=== PATIENT | female | born 1930 | race Caucasian/White ===

== ENCOUNTER 2017-02-25 05:39 | Emergency (ER) | payer MEDICARE, OTHER ==
[~2017-02-25] VITALS: Ht 160 cm; Wt 57.3 kg
[~2017-02-25 05:39] MED LIST: AMLO5 PO; ATEN-100 PO; BONI150T PO; CALC-187 PO; KLOR20TA6 PO; LISI-357 PO; LIVA2TAB PO; OMEP20TA PO; OXYB5TAB33 PO; TAB-TAB PO
[2017-02-25 05:50] VITALS: BP 107/56; PULSE 80; RESP 20; TEMP 97.5; O2SAT 97
[2017-02-25 06:09] VITALS: BP 107/56; PULSE 80; RESP 18; TEMP 97.5; O2SAT 97
[2017-02-25] MEDS ORDERED: OXYB5TAB8 PO (06:19)
[2017-02-25] MEDS ORDERED: OMEP20TA93 PO (06:19)
[2017-02-25] MEDS ORDERED: AMLO5TAB2 PO (06:19)
[2017-02-25] MEDS ORDERED: LOVA20TA PO (06:19)
[2017-02-25] MEDS ORDERED: ATEN25TA PO (06:19)
[2017-02-25 06:35] VITALS: BP 125/66; PULSE 71; RESP 18; O2SAT 97
--- NOTE | 2017-02-25 06:51 | PD ---
HPI Chief Complaint: Fall Time Seen by Provider: 06:28 Travel History International Travel<30 days: No Contact w/Intl Traveler<30days: No Traveled to known affect area: No History of Present Illness HPI This is an 86-year-old female who 2 nights ago had a mechanical fall in her house where she injured her left hip. Since then she's had left leg pain, constant, severe, worse with walking. She's been able to ambulate with a walker but whenever she puts minimal weight on the leg she has severe pain. She denies any numbness or weakness. She didn't hit her head or injure herself otherwise after her fall. She has a history of bilateral hip replacements. [facility] Past Medical History Asthma: No Autoimmune Disease: No Heart Rhythm Problems: No Cancer: No Cardiovascular Problems: Yes High Cholesterol: Yes Chest Pain: No Congestive Heart Failure: Yes COPD: No Diabetes: No Endocrine: No Gastrointestinal Disorders: Yes GERD: Yes Genitourinary: No Hiatal Hernia: No Hypertension: Yes Immune Disorder: No Implanted Vascular Access Dvce: Yes Musculoskeletal: No Neurologic: No Psychiatric: No Reproductive: No Respiratory: Yes (RECENT PNEUMONIA 2010) Sleep Apnea: No Thyroid Disease: No Ulcer: No ?: Not Menopausal: Yes Past Surgical History Abdominal Surgery: Yes (CHOLECYSTECTOMY) Cardiac Surgery: No Cholecystectomy: Yes Ear Surgery: No Endocrine Surgery: No Eye Surgery: Yes (BILATERAL "LENS REPLACEMENT") Genitourinary Surgery: No Gynecologic Surgery: No Joint Replacement: Yes (right hip, LEFT HIP) Oral Surgery: No Thoracic Surgery: No Other Surgery: Yes Social History Alcohol Use: No Tobacco Use: No Substance Use: No Allergies-Medications (Allergen,Severity, Reaction): Coded Allergies: simvastatin (Verified Allergy, Severe, unknown, 02/25/17) ciprofloxacin (Verified Allergy, Unknown, 02/25/17) Reported Meds & Prescriptions Reported Meds & Active Scripts Active Reported Ditropan (Oxybutynin Chloride) 5 Mg Tab 5 Mg PO Q12HR Atenolol 25 Mg Tab 25 Mg PO DAILY Omeprazole 20 Mg Tab 20 Mg PO DAILY Lovastatin 20 Mg Tab 20 Mg PO DAILY Amlodipine (Amlodipine Besylate) 5 Mg Tab 5 Mg PO DAILY Review of Systems Except as stated in HPI: all other systems reviewed are Neg Physical Exam Narrative GENERAL:Well appearing, no acute distress SKIN: Focused skin assessment warm and dry. HEAD: Atraumatic. Normocephalic. EYES: Pupils equal and round. No injection or drainage. ENT: Moist mucous membranes NECK: Trachea midline. CARDIOVASCULAR: Regular rate and rhythm. No murmur appreciated. 2+ bilateral DP pulses with normal capillary refill. RESPIRATORY: Clear to auscultation. Breath sounds equal bilaterally. GASTROINTESTINAL: Abdomen soft, non-tender, nondistended. MUSCULOSKELETAL: Tender to palpation along the mid left thigh NEUROLOGICAL: Awake and alert. No obvious cranial nerve deficits. Moving all extremities. PSYCHIATRIC: Appropriate mood and affect; insight and judgment normal. Data Data Last Documented VS Vital Signs Date Time Temp Pulse Resp B/P (MAP) Pulse Ox O2 Delivery O2 Flow Rate FiO2 02/25/17 06:35 71 18 125/66 (85) 97 Room Air 02/25/17 06:09 97.5 Orders Orders Hip, Uni(Ap&Lat) W Ap Pelvis (02/25/17 ) Femur (Ap & Lat/2vws) (02/25/17 ) MDM Medical Decision Making Medical Screen Exam Complete: Yes Emergency Medical Condition: Yes Differential Diagnosis Femur fracture, hip dislocation, contusion, hip sprain Narrative Course This is an 86-year-old female who presents to the emergency department having had a mechanical fall 2 nights ago injuring her left leg. Patient is most tender along the mid femur. She has a normal neurovascular exam. X-rays will be obtained and followed up by oncoming physician. She has no other evident injuries. Ethel Balderrama MD Feb 25, 2017 06:51
--- NOTE | 2017-02-25 07:00 | RADRPT ---
EXAM DATE/TIME: 02/25/2017 06:39 [facility] COMPARISON: No previous studies available for comparison. INDICATIONS : Left hip pain post fall. MEDICAL HISTORY : Congestive heart failure. Hypercholesterolemia. Gastroesophageal reflux disease. Hypertension. SURGICAL HISTORY : Cholecystectomy. Bilateral hip replacements. ENCOUNTER: Initial ACUITY: 2 days PAIN SCORE: 10/10 LOCATION: Left hip. FINDINGS: Examination of the left hip was performed with AP Pelvis. Left hip arthroplasty. Femoral component in tact. There is a fracture fragment along the greater trochanter. Right hip also has arthroplasty whic h is intact. CONCLUSION: Bilateral hip prostheses. There is a fracture fragment along the greater trochanter on the left. Jovany Chaney MD on February 25, 2017 at 6:55 Board Certified Radiologist. This report was verified electronically.
--- NOTE | 2017-02-25 07:01 | RADRPT ---
EXAM DATE/TIME: 02/25/2017 06:39 [facility] COMPARISON: No previous studies available for comparison. INDICATIONS : Left femur pain post fall. MEDICAL HISTORY : Hypercholesterolemia. Gastroesophageal reflux disease. Gastroesophageal reflux disease. Hypetensi on. SURGICAL HISTORY : Cholecystectomy. Bilateral hip replacements. ENCOUNTER: Initial ACUITY: 2 days PAIN SCORE: 10/10 LOCATION: Left femur FINDINGS: Two view examination of the left femur demonstrates left hip arthroplasty. Fracture fragment along th e greater trochanter. No hardware loosening. Mid to distal femur is intact. The soft tissue structure s are intact. CONCLUSION: A small fracture fragment along the greater trochanter of the left. Jovany Chaney MD on February 25, 2017 at 6:58 Board Certified Radiologist. This report was verified electronically.
[2017-02-25 09:06] VITALS: BP 138/83; PULSE 86; RESP 16; O2SAT 96
[2017-02-25] MEDS ORDERED: BEDSIDE COMMODE1 MI1 (09:07)
[2017-02-25] MEDS ORDERED: TRAM50TA PO (09:07)
--- NOTE | 2017-02-25 09:08 | PD ---
Physical Exam Date Seen by Provider: Feb 25, 2017 Time Seen by Provider: 07:00 Narrative Patient signed out to me at [address] Balderrama, please see her note for further details. Patient has had a fall, left hip injury, x-ray is showing signs of a small fracture in the greater trochanter, previously had hip replacement by Dr. Salinas. Last 24 hours Impressions Hip and Pelvis X-Ray 02/25/17 0000 Signed Impressions: Service Date/Time: , February 25, 2017 06:39 - CONCLUSION: Bilateral hip prostheses. There is a fracture fragment along the greater trochanter on the left. Jovany Chaney MD Femur X-Ray 02/25/17 0000 Signed Impressions: Service Date/Time: , February 25, 2017 06:39 - CONCLUSION: A small fracture fragment along the greater trochanter of the left. Jovany Chaney MD There are signs of a small fracture through the greater trochanter. Case was discussed with Dr. Ramos who is covering for Dr. Salinas, and he states that the patient can be released to follow-up with Dr. Salinas in the clinic, patient will need to call to get appointment. He wants her to be nonweightbearing on that leg meanwhile. At this point, I have discussed the findings and the orthopedic recommendations with the patient. I will give her pain medications. She should be nonweightbearing on the left. I have asked case management to discuss care plan with her and to help arrange for home health services as well as ride home. Return for any worsening in pain or new symptoms as needed. The plan has been discussed with the patient and she states understanding. Data Data Last Documented VS Vital Signs Date Time Temp Pulse Resp B/P (MAP) Pulse Ox O2 Delivery O2 Flow Rate FiO2 02/25/17 06:35 71 18 125/66 (85) 97 Room Air 02/25/17 06:09 97.5 Orders Orders Hip, Uni(Ap&Lat) W Ap Pelvis (02/25/17 ) Femur (Ap & Lat/2vws) (02/25/17 ) MDM Medical Record Reviewed: Yes Supervised Visit with JOHNNY: No Diagnosis Primary Impression: Greater trochanter fracture Referrals: Joe Rahman MD Med/Other Pt SpecificInfo: Prescription(s) given Scripts Bedside Commode (Bedside Commode) 1 Mis Mis EA .ROUTE DIRECTED for Pain, #1 Prov: Meghan Hanks MD 02/25/17 Tramadol (Tramadol) 50 Mg Tab 50 MG PO Q8H Y for PAIN, #15 TAB 0 Refills Prov: Meghan Hanks MD 02/25/17 Disposition: 01 DISCHARGE HOME Condition: Stable Meghan Hanks MD Feb 25, 2017 09:08
== END 2017-02-25 10:46 | disposition home or self-care (01) ==
LOC: PHED 05:39 → PHEFT 10:46
DX: S72.112A Displaced fracture of greater trochanter of left femur, initial encounter for closed fracture (principal); W19.XXXA Unspecified fall, initial encounter; Y92.009 Unspecified place in unspecified non-institutional (private) residence as the place of occurrence of the external cause
CPT/HCPCS: 73502; 73552; 99284

== ENCOUNTER 2017-10-21 07:47 | Inpatient (IN) | payer MEDICARE, OTHER ==
[2017-10-21] VITALS (9 sets, daily range): BP systolic 75–128; BP diastolic 52–77; PULSE 90–145; RESP 18–40; TEMP 97.6; O2SAT 85–98
[~2017-10-21] VITALS: Ht 160 cm; Wt 70.0 kg
[~2017-10-21 07:47] MED LIST changes: -AMLO5 PO; +AMLO5TAB2 PO; -ATEN-100 PO; +ATEN25TA PO; +BEDSIDE COMMODE1 MI1; -BONI150T PO; -CALC-187 PO; -KLOR20TA6 PO; -LISI-357 PO; -LIVA2TAB PO; +LOVA20TA PO; -OMEP20TA PO; +OMEP20TA93 PO; -OXYB5TAB33 PO; +OXYB5TAB8 PO; -TAB-TAB PO; +TRAM50TA PO
[2017-10-21] MEDS ORDERED: IOHEXOL 350 MG/ML 100 ML BTL (for Cath Lab) OTHER ONE (07:48)
[2017-10-21] MEDS ORDERED: SODIUM CHLOR 0.9% 1000 ML INJ 1,000 ML IV ONE ×2 (08:00→08:45)
[2017-10-21] MEDS ORDERED: SODIUM CHLORIDE 0.9% FLUSH 10 ML FLUSH IVF PRN (08:00)
[2017-10-21 08:10] LABS: AUTOMATED NEUTROPHIL # 9.8 TH/MM3 (1.8-7.7); BASOPHIL # 0.1 TH/MM3 (0-0.2); BASOPHIL % 0.8 % (0.0-2.0); EOSINOPHIL % 0.2 % (0.0-4.0); HEMOGLOBIN 14.7 GM/DL (11.6-15.3); LYMPH % 14.3 % (9.0-44.0); LYMPHOCYTE # 1.7 TH/MM3 (1.0-4.8); MEAN CELL VOLUME 86.1 FL (80.0-100.0); MEAN CORPUSCULAR HGB CONC 32.5 % (32.0-36.0); MEAN PLATELET VOLUME 9.5 FL (7.0-11.0); MONO % 3.4 % (0.0-8.0); MONOCYTE # 0.4 TH/MM3 (0-0.9); NEUT % 81.3 % (16.0-70.0); PLATELET COUNT 266 TH/MM3 (150-450); RED BLOOD COUNT 5.23 MIL/MM3 (4.00-5.30); RED CELL DISTRIBUTION WIDTH 13.3 % (11.6-17.2); WHITE BLOOD COUNT 12.1 TH/MM3 (4.0-11.0)
[2017-10-21] MEDS ORDERED: CALC1TAB87 PO (08:10)
[2017-10-21] MEDS ORDERED: MULTTAB67 PO (08:10)
[2017-10-21] MEDS ORDERED: METOPROLOL TARTRATE 5 MG/5 ML VIAL IV PUSH ONE (08:15)
[2017-10-21 08:25] LABS: PROTHROMBIN TIME - PATIENT 10.3 SEC (9.8-11.6)
[2017-10-21] MEDS ORDERED: AMIODARONE INJ 150 MG in DEXTROSE 5% IN WATER 100ML INJ 97 ML IV ONE ×2 (08:27)
[2017-10-21 08:41] LABS: ALBUMIN 3.1 GM/DL (3.4-5.0); AST (GOT) 167 U/L (15-37); BICARBONATE 21.1 MEQ/L (21.0-32.0); BLOOD UREA NITROGEN 18 MG/DL (7-18); CALCIUM 8.5 MG/DL (8.5-10.1); CHLORIDE 109 MEQ/L (98-107); CREATININE 1.57 MG/DL (0.50-1.00); GLOMERULAR FILTRATION RATE 31 ML/MIN (>89); GLUCOSE,RANDOM 211 MG/DL (74-106); SODIUM (NA) 141 MEQ/L (136-145)
[2017-10-21 08:42] LABS: ALT (GPT) 67 U/L (10-53)
[2017-10-21 08:45] LABS: ALKALINE PHOSPHATASE 51 U/L (45-117); TOTAL BILIRUBIN ADULT 0.5 MG/DL (0.2-1.0); TOTAL PROTEIN 6.2 GM/DL (6.4-8.2)
[2017-10-21] MEDS ORDERED: ONDANSETRON ODT 4 MG TAB PO ONE (08:45)
--- NOTE | 2017-10-21 08:49 | RADRPT ---
EXAM DATE: 10/21/2017 8:23 AM EDT AGE/SEX: 87 years / Female INDICATIONS: Short of breath. CLINICAL DATA: This is the patient's initial encounter. Patient reports that signs and symptoms have been present for 1 day and indicates a pain score of 0/10. MEDICAL/SURGICAL HISTORY: Congestive heart failure. Hypertension. Gastroesophageal reflux dis ease. Cholecystectomy. Bilateral hip replacement. COMPARISON: [facility], CHEST SINGLE AP, 07/20/2013. . FINDINGS: There is moderate diffuse interstitial prominence slightly more prominent in the lung bases. Cardiome diastinal contours are within normal limits. Central pulmonary vascularity is indistinct. Bony thorax is intact. CONCLUSION: 1. New moderate lower lobe predominant diffuse interstitial prominence likely reflecting interstitia l edema, although chronicity is uncertain given lack of more recent prior exams. Electronically signed by: Doc Dixon MD 10/21/2017 8:48 AM EDT
[2017-10-21] MEDS ORDERED: IODIXANOL 320 MG/ML 10 ML VIAL (for Rad CT) IVCONTRAST ONE (09:27)
[2017-10-21] MEDS ORDERED: HEPARIN SODIUM - IV 10,000 UNITS/10 ML VIAL IV PUSH ONE (09:45)
[2017-10-21] MEDS ORDERED: DOPamine 800 MG/500 ML INJ 500 ML IV PRN (09:45)
[2017-10-21] MEDS ORDERED: HEPARIN-D5W 25,000 U/250 ML 250 ML IV PRN (09:45)
[2017-10-21] MEDS ORDERED: TERBUTALINE INJ 1 MG/ML AMP SQ PRN (09:45)
--- NOTE | 2017-10-21 09:48 | PD ---
Data Data Last Documented VS Vital Signs Date Time Temp Pulse Resp B/P (MAP) Pulse Ox O2 Delivery O2 Flow Rate FiO2 10/21/17 09:37 111 25 113/71 (85) 91 Non-Rebreather 15.00 10/21/17 07:48 97.6 Orders Orders Complete Blood Count With Diff (10/21/17 07:59) Comprehensive Metabolic Panel (10/21/17 07:59) Act Partial Throm Time (Ptt) (10/21/17 07:59) Prothrombin Time / Inr (Pt) (10/21/17 07:59) Ckmb (Isoenzyme) Profile (10/21/17 07:59) Troponin I (10/21/17 07:59) Iv Access Insert/Monitor (10/21/17 07:59) Ecg Monitoring (10/21/17 07:59) Oximetry (10/21/17 07:59) Oxygen Administration (10/21/17 07:59) Chest, Single Ap (10/21/17 07:59) Ct Pulmonary Angiogram (10/21/17 07:59) Sodium Chloride 0.9% Flush (Ns Flush) (10/21/17 08:00) Sodium Chlor 0.9% 1000 Ml Inj (Ns 1000 M (10/21/17 08:00) Metoprolol Tartrate Inj (Lopressor Inj) (10/21/17 08:15) ^ Medication Alert (10/21/17 08:27) ^ Discontinue (10/21/17 08:27) Dextrose 5% In Wate... W/Amiodarone Inj (10/21/17 08:27) Vital Signs (Adult) SIENA.Q4H (10/21/17 08:27) Sodium Chlor 0.9% 1000 Ml Inj (Ns 1000 M (10/21/17 08:45) Ondansetron Odt (Zofran Odt) (10/21/17 08:45) CKMB (10/21/17 08:00) CKMB% (10/21/17 08:00) Iodixanol 320 Inj (Rad Ct) (Visipaque 32 (10/21/17 09:27) Dopamine 800 Mg/500 Ml Inj (Dopamine 800 (10/21/17 09:45) Terbutaline Inj (Brethine Inj) (10/21/17 09:45) Heparin Inj (Heparin Inj) (10/21/17 09:45) Heparin Inj (Heparin Inj) (10/21/17 15:45) Heparin Inj (Heparin Inj) (10/21/17 15:45) Heparin-D5w 25,000 U/250 Ml (Heparin-D5w (10/21/17 09:45) Cbc No Diff, Includes Plts (10/24/17 06:00) Act Partial Throm Time (Ptt) (10/21/17 16:36) Occult Blood (Hemoccult) Stool (10/21/17 09:36) Labs Laboratory Tests Test 10/21/17 08:00 White Blood Count 12.1 TH/MM3 Red Blood Count 5.23 MIL/MM3 Hemoglobin 14.7 GM/DL Hematocrit 45.0 % Mean Corpuscular Volume 86.1 FL Mean Corpuscular Hemoglobin 28.0 PG Mean Corpuscular Hemoglobin Concent 32.5 % Red Cell Distribution Width 13.3 % Platelet Count 266 TH/MM3 Mean Platelet Volume 9.5 FL Neutrophils (%) (Auto) 81.3 % Lymphocytes (%) (Auto) 14.3 % Monocytes (%) (Auto) 3.4 % Eosinophils (%) (Auto) 0.2 % Basophils (%) (Auto) 0.8 % Neutrophils # (Auto) 9.8 TH/MM3 Lymphocytes # (Auto) 1.7 TH/MM3 Monocytes # (Auto) 0.4 TH/MM3 Eosinophils # (Auto) 0.0 TH/MM3 Basophils # (Auto) 0.1 TH/MM3 CBC Comment DIFF FINAL Differential Comment Prothrombin Time 10.3 SEC Prothromb Time International Ratio 1.0 RATIO Activated Partial Thromboplast Time 26.0 SEC Blood Urea Nitrogen 18 MG/DL Creatinine 1.57 MG/DL Random Glucose 211 MG/DL Total Protein 6.2 GM/DL Albumin 3.1 GM/DL Calcium Level 8.5 MG/DL Alkaline Phosphatase 51 U/L Aspartate Amino Transf (AST/SGOT) 167 U/L Alanine Aminotransferase (ALT/SGPT) 67 U/L Total Bilirubin 0.5 MG/DL Sodium Level 141 MEQ/L Potassium Level 4.1 MEQ/L Chloride Level 109 MEQ/L Carbon Dioxide Level 21.1 MEQ/L Anion Gap 11 MEQ/L Estimat Glomerular Filtration Rate 31 ML/MIN Total Creatine Kinase 731 U/L Creatine Kinase MB 80.4 NG/ML Creatine Kinase MB % 11.0 % Troponin I 15.60 NG/ML MDM Supervised Visit with JOHNNY: No Narrative Course Dr. Das asked for my opinion on this 87 year old female who has been having chest pressure since 0200. EKG atrial fib with RVR initially 170's now down to 100-120. Patient BP on the lower side. She is alert awake and oriented understands that she has likely had a massive PA early this morning. I have performed a BS US showing greatly reduced LV EF. Trace pericardial effusion. There is some trace pulmonary edema on cxr. She is still having active CP. She 's already received 1000L NS, and metoprolol. Discussed consultation with cardiology, ICU. Dr. Lai recommends consideration of Dopamine if BP declines again. Discussed with patient that her heart appears to be very ill and while we are doing everything she may require ACLS in the near future. Patient expressed her wishes to be DNR/DNI. Witnessed by Dr. Das and nursing. A formal order was signed by both myself and Dr. Das for DNR/DNI status. Condition: Critical Mehrdad Zhu MD Oct 21, 2017 09:48
--- NOTE | 2017-10-21 09:51 | PD ---
HPI Chief Complaint: Chest Pain Time Seen by Provider: 07:58 Travel History International Travel<30 days: No Contact w/Intl Traveler<30days: No Traveled to known affect area: No History of Present Illness HPI Patient is an 87 year old female, BIBEMS due to chest pain and SOB. She says that she woke up at 2AM with substernal chest pain. She denies radiation of the pain. She says she feels SOB and as if she is going to pass out. She says she had an episode of pain a few days ago, but she thought it was indigestion. She says she has no heart problems that she knows of or any issues with her heart rhythm. She denies leg swelling or pain. She did not take anything prior to calling EMS. Severity is severe. PFSH Past Medical History Asthma: No Autoimmune Disease: No Heart Rhythm Problems: No Cancer: No Cardiovascular Problems: Yes High Cholesterol: Yes Chest Pain: No Congestive Heart Failure: Yes COPD: No Diabetes: No Endocrine: No Gastrointestinal Disorders: Yes GERD: Yes Genitourinary: No Hiatal Hernia: No Hypertension: Yes Immune Disorder: No Implanted Vascular Access Dvce: Yes Musculoskeletal: No Neurologic: No Psychiatric: No Reproductive: No Respiratory: Yes (PNEUMONIA 2010) Sleep Apnea: No Thyroid Disease: No Ulcer: No Influenza Vaccination: Yes Menopausal: Yes Past Surgical History Abdominal Surgery: Yes (CHOLECYSTECTOMY) Cardiac Surgery: No Cholecystectomy: Yes Ear Surgery: No Endocrine Surgery: No Eye Surgery: Yes (BILATERAL "LENS REPLACEMENT") Genitourinary Surgery: No Gynecologic Surgery: No Joint Replacement: Yes (right hip, LEFT HIP) Oral Surgery: No Thoracic Surgery: No Other Surgery: Yes Social History Alcohol Use: No Tobacco Use: No Substance Use: No Allergies-Medications (Allergen,Severity, Reaction): Coded Allergies: simvastatin (Verified Allergy, Severe, unknown, 10/21/17) ciprofloxacin (Verified Allergy, Unknown, 10/21/17) Reported Meds & Prescriptions Reported Meds & Active Scripts Active Bedside Commode (Device) 1 Mis Mis Ea .ROUTE DIRECTED Reported Multiple Vitamin 1 Tab 1 Tab PO DAILY Calcium 600 with Vitamin D (Calcium Carbonate-Cholecalciferol) 600-400 mg-Unit Tab 1 Tab PO DAILY Ditropan (Oxybutynin Chloride) 5 Mg Tab 5 Mg PO Q12HR Atenolol 25 Mg Tab 25 Mg PO BID Omeprazole 20 Mg Tab 20 Mg PO DAILY Lovastatin 20 Mg Tab 20 Mg PO DAILY Amlodipine (Amlodipine Besylate) 5 Mg Tab 5 Mg PO BID Review of Systems Except as stated in HPI: all other systems reviewed are Neg General / Constitutional: No: Fever, Chills Eyes: No: Blurred Vision HENT: Positive: Lightheadedness, No: Headaches Cardiovascular: Positive: Chest Pain or Discomfort Respiratory: Positive: Shortness of Breath Gastrointestinal: Positive: Nausea Skin: No Change in Pigmentation Physical Exam Narrative GENERAL: Awake and alert, obviously uncomfortable. SKIN: Focused skin assessment warm/dry. Pale in color. HEAD: Atraumatic. Normocephalic. EYES: Pupils equal and round. No scleral icterus. EOMI. ENT: Mucous membranes pink and moist. NECK: Trachea midline. No JVD. CARDIOVASCULAR: Tachycardia, irregularly irregular. No murmur appreciated. RESPIRATORY: No accessory muscle use. Clear to auscultation. Breath sounds equal bilaterally. GASTROINTESTINAL: Abdomen soft, non-tender, nondistended. MUSCULOSKELETAL: No obvious deformities. No clubbing. No cyanosis. No edema. NEUROLOGICAL: Awake and alert. No obvious cranial nerve deficits. Motor grossly within normal limits. Normal speech. PSYCHIATRIC: Appropriate mood and affect; insight and judgment normal. Data Data Last Documented VS Vital Signs Date Time Temp Pulse Resp B/P (MAP) Pulse Ox O2 Delivery O2 Flow Rate FiO2 10/21/17 10:22 90 80/55 10/21/17 09:45 27 90 Non-Rebreather 15.00 10/21/17 07:48 97.6 Orders Orders Complete Blood Count With Diff (10/21/17 07:59) Comprehensive Metabolic Panel (10/21/17 07:59) Act Partial Throm Time (Ptt) (10/21/17 07:59) Prothrombin Time / Inr (Pt) (10/21/17 07:59) Ckmb (Isoenzyme) Profile (10/21/17 07:59) Troponin I (10/21/17 07:59) Iv Access Insert/Monitor (10/21/17 07:59) Ecg Monitoring (10/21/17 07:59) Oximetry (10/21/17 07:59) Oxygen Administration (10/21/17 07:59) Chest, Single Ap (10/21/17 07:59) Ct Pulmonary Angiogram (10/21/17 07:59) Sodium Chloride 0.9% Flush (Ns Flush) (10/21/17 08:00) Sodium Chlor 0.9% 1000 Ml Inj (Ns 1000 M (10/21/17 08:00) Metoprolol Tartrate Inj (Lopressor Inj) (10/21/17 08:15) ^ Medication Alert (10/21/17 08:27) ^ Discontinue (10/21/17 08:27) Dextrose 5% In Wate... W/Amiodarone Inj (10/21/17 08:27) Vital Signs (Adult) SIENA.Q4H (10/21/17 08:27) Sodium Chlor 0.9% 1000 Ml Inj (Ns 1000 M (10/21/17 08:45) Ondansetron Odt (Zofran Odt) (10/21/17 08:45) CKMB (10/21/17 08:00) CKMB% (10/21/17 08:00) Iodixanol 320 Inj (Rad Ct) (Visipaque 32 (10/21/17 09:27) Dopamine 800 Mg/500 Ml Inj (Dopamine 800 (10/21/17 09:45) Terbutaline Inj (Brethine Inj) (10/21/17 09:45) Heparin Inj (Heparin Inj) (10/21/17 09:45) Heparin Inj (Heparin Inj) (10/21/17 15:45) Heparin Inj (Heparin Inj) (10/21/17 15:45) Heparin-D5w 25,000 U/250 Ml (Heparin-D5w (10/21/17 09:45) Cbc No Diff, Includes Plts (10/24/17 06:00) Act Partial Throm Time (Ptt) (10/21/17 16:36) Occult Blood (Hemoccult) Stool (10/21/17 09:36) Cardiac Catheterization (10/21/17 ) Admit Order (Ed Use Only) (10/21/17 ) Code Status (10/21/17 09:51) Heparin-Ns/Pf Inj (Heparin-Ns/Pf Inj) (10/21/17 10:05) Dopamine 800 Mg/500 Ml Inj (Dopamine 800 (10/21/17 10:20) Admit To Inpatient (10/21/17 ) Vital Signs (Adult) SIENA.Q1H (10/21/17 10:14) Activity Bed Rest (10/21/17 10:14) Diet Npo (10/21/17 Lunch) Sodium Chlor 0.9% 1000 Ml Inj (Ns 1000 M (10/21/17 10:14) Morphine Inj (Morphine Inj) (10/21/17 10:15) Famotidine Inj (Pepcid Inj) (10/21/17 21:00) Albuterol-Ipratropium Neb (Duoneb Neb) (10/21/17 10:15) Complete Blood Count With Diff (10/22/17 04:00) Comprehensive Metabolic Panel (10/22/17 04:00) Troponin I (10/21/17 14:00) Troponin I (10/21/17 20:00) Magnesium (Mg) (10/22/17 04:00) Phosphorus (Po4) (10/22/17 04:00) Lactic Acid (10/22/17 04:00) Electrocardiogram (10/21/17 14:00) Electrocardiogram (10/21/17 20:00) Weigh Box Tender / Telemetry SIENA.Q8H (10/21/17 10:14) Scd Bilateral/Knee High SIENA.BID (10/21/17 10:14) ^ Initiate Protocol (10/21/17 10:14) Instruction (10/21/17 10:14) Nursing Information ([facility] Nursing Inform (10/21/17 10:15) Chlorhexidine 2% Cloth (Chlorhexidine 2% (10/22/17 04:00) Chlorhexidine 2% Cloth (Chlorhexidine 2% (10/21/17 10:15) Mrsa Pcr Surveillance (10/21/17 10:14) Docusate Sodium-Senna (Shaina-Colace) (10/21/17 21:00) Magnesium Hydroxide Liq (Milk Of Magnesi (10/21/17 10:15) Sennosides (Senokot) (10/21/17 10:15) Bisacodyl Supp (Dulcolax Supp) (10/21/17 10:15) Lactulose Liq (Lactulose Liq) (10/21/17 10:15) Inpatient Certification (10/21/17 ) Famotidine Inj (Pepcid Inj) (10/22/17 09:00) Lactic Acid (10/21/17 10:31) Electrocardiogram (10/21/17 07:51) Epinephrine (1:10,000) Inj (Epinephrine (10/21/17 11:43) Atropine Inj (Atropine Inj) (10/21/17 11:43) Labs Laboratory Tests Test 10/21/17 08:00 White Blood Count 12.1 TH/MM3 Red Blood Count 5.23 MIL/MM3 Hemoglobin 14.7 GM/DL Hematocrit 45.0 % Mean Corpuscular Volume 86.1 FL Mean Corpuscular Hemoglobin 28.0 PG Mean Corpuscular Hemoglobin Concent 32.5 % Red Cell Distribution Width 13.3 % Platelet Count 266 TH/MM3 Mean Platelet Volume 9.5 FL Neutrophils (%) (Auto) 81.3 % Lymphocytes (%) (Auto) 14.3 % Monocytes (%) (Auto) 3.4 % Eosinophils (%) (Auto) 0.2 % Basophils (%) (Auto) 0.8 % Neutrophils # (Auto) 9.8 TH/MM3 Lymphocytes # (Auto) 1.7 TH/MM3 Monocytes # (Auto) 0.4 TH/MM3 Eosinophils # (Auto) 0.0 TH/MM3 Basophils # (Auto) 0.1 TH/MM3 CBC Comment DIFF FINAL Differential Comment Prothrombin Time 10.3 SEC Prothromb Time International Ratio 1.0 RATIO Activated Partial Thromboplast Time 26.0 SEC Blood Urea Nitrogen 18 MG/DL Creatinine 1.57 MG/DL Random Glucose 211 MG/DL Total Protein 6.2 GM/DL Albumin 3.1 GM/DL Calcium Level 8.5 MG/DL Alkaline Phosphatase 51 U/L Aspartate Amino Transf (AST/SGOT) 167 U/L Alanine Aminotransferase (ALT/SGPT) 67 U/L Total Bilirubin 0.5 MG/DL Sodium Level 141 MEQ/L Potassium Level 4.1 MEQ/L Chloride Level 109 MEQ/L Carbon Dioxide Level 21.1 MEQ/L Anion Gap 11 MEQ/L Estimat Glomerular Filtration Rate 31 ML/MIN Total Creatine Kinase 731 U/L Creatine Kinase MB 80.4 NG/ML Creatine Kinase MB % 11.0 % Troponin I 15.60 NG/ML MDM Medical Decision Making Medical Screen Exam Complete: Yes Emergency Medical Condition: Yes Medical Record Reviewed: Yes Interpretation(s) ECG shows afib with RVR at a rate of 132 Differential Diagnosis ACS vs NSTEMI vs STEMI vs PE vs dissection Narrative Course Patient is a 87 year old female who comes in complaining of chest pain with SOB. Patient was given Aspirin by EMS. She was given IVF and nitro by EMS prior to arrival. Patient is hypotensive on arrival. Second IV started. Given IVF. Patient had some improvement of her BP with fluids. Given 1.25mg Metoprolol in an attempt to help with rate control. When this didn't work, Amiodarone ordered. Amiodarone did help with rate control. Patient's BP began to improve. CTA chest performed to rule out PE. Last 24 hours Impressions Chest X-Ray 10/21/17 844 Signed Impressions: CONCLUSION: 1. New moderate lower lobe predominant diffuse interstitial prominence likely reflecting interstitial edema, although chronicity is uncertain given lack of m ore recent prior exams. CT Angiography 10/21/17 803 Signed Impressions: CONCLUSION: 1. No pulmonary embolus is identified. 2. Small bilateral effusions. 3. Diffuse bilateral infiltrates likely representing interstitial edema. 4. Cardiomegaly with extensive atherosclerotic calcification of the coronary a rteries. 5. Calcification of the aortic annulus. I spoke with the patient regarding her wishes in the case that her heart would stop. She says she does not wish to be resuscitated. She does not want CPR or intubation. This was witnessed by Dr. Zhu. I spoke with Dr. Lai who would like to take the patient to the wharf laborer. He suggests Dopamine as needed and Heparin. Patient's labs came back with a troponin of 15. She was taken to the wharf laborer. Admitted. Critical Care Narrative Aggregate critical care time was 60 minutes. Time to perform other separately billable procedures was not included in the critical care time. My time did not include minutes spent treating any other patients simultaneously or on activities that did not directly contribute to the patient's treatment. The services I provided to this patient were to treat and/or prevent clinically significant deterioration that could result in: Serious illness or I provided critical care services requiring my management, as noted below: Chart data review, documentation time, medication orders and management, vital sign assessments/reviewing monitor data, ordering and reviewing lab tests, ordering and interpreting/reviewing x-rays and diagnostic studies, care of the patient and discussion of the patient with the admitting physicians. Diagnosis Primary Impression: Cardiogenic shock Additional Impression: NSTEMI (non-ST elevated myocardial infarction) Admitting Information Admitting Physician Requests: Admit Condition: Critical Erinn Das MD Oct 21, 2017 09:51
--- NOTE | 2017-10-21 09:54 | RADRPT ---
EXAM DATE: 10/21/2017 9:28 AM EDT AGE/SEX: 87 years / Female INDICATIONS: Shortness of breath, hypotension. Evaluate for embolism. CLINICAL DATA: This is the patient's initial encounter. Patient reports that signs and symptoms have been present for 1 day and indicates a pain score of Nonresponsive. MEDICAL/SURGICAL HISTORY: Cardiovascular disease. Hypertension. Gastroesophageal reflux disease. Cholecystectomy. RADIATION DOSE: 12.63 CTDI (mGy) COMPARISON: No prior exams available for comparison. TECHNIQUE: Volumetric scanning was performed using a multi-row detector CT scanner during bolus infu martir of 49 ml Visipaque 320 (iodixanol) nonionic water-soluble contrast as a single exam dose. The d kingsley was post processed with a variety of visualization algorithms including full volume maximum inten sity projection and sliding thin slab reformation. Using automated exposure control and adjustment o f the mA and/or kV according to patient size, radiation dose was kept as low as reasonably achievable to obtain optimal diagnostic quality images. DICOM format image data is available electronically fo r review and comparison. FINDINGS: The examination is of good diagnostic quality. No pulmonary embolus is identified. The heart is enlarged. There is advanced atherosclerotic plaquing in the coronary arteries. There is extensive calcification of the aortic annulus. There is no pericardial effusion. No significant hilar or mediastinal adenopathy is identified. Imaging through the pulmonary parenchyma demonstrates small bilateral effusions and bilateral parench ymal infiltrates likely representing pulmonary edema. The examination also demonstrates a 3.5 x 1.3 cm lipoma along the pleura of the right lateral chest. The limited portions of upper abdomen visualized are unremarkable. CONCLUSION: 1. No pulmonary embolus is identified. 2. Small bilateral effusions. 3. Diffuse bilateral infiltrates likely representing interstitial edema. 4. Cardiomegaly with extensive atherosclerotic calcification of the coronary arteries. 5. Calcification of the aortic annulus. Electronically signed by: Brayan Ly MD 10/21/2017 9:53 AM EDT
[2017-10-21] MEDS ORDERED: HEPARIN-NS/PF INJ 1,000 ML ONE (10:05)
[2017-10-21] MEDS ORDERED: SODIUM CHLOR 0.9% 1000 ML INJ 1,000 ML IV SCH (10:14)
[2017-10-21] MEDS ORDERED: CHLORHEXIDINE GLUCONATE 2 % 1 PACK (2 CLOTHS) TOP PRN (10:15)
[2017-10-21] MEDS ORDERED: LACTULOSE SYRUP 20 GM/30 ML CUP PO PRN (10:15)
[2017-10-21] MEDS ORDERED: NURSING INFORMATION XX SCH (10:15)
[2017-10-21] MEDS ORDERED: BISACODYL 10 MG SUPP RECTAL PRN (10:15)
[2017-10-21] MEDS ORDERED: RESP: ALBUTEROL 2.5 MG/IPRATROPIUM 0.5 MG NEB (PRN) INH (10:15)
[2017-10-21] MEDS ORDERED: MORPHINE SULFATE 4 MG/ML INJ IV PUSH PRN (10:15)
[2017-10-21] MEDS ORDERED: MAGNESIUM HYDROXIDE SUSP 30 ML CUP PO PRN (10:15)
[2017-10-21] MEDS ORDERED: SENNOSIDES 8.6 MG TAB PO PRN (10:15)
[2017-10-21] MEDS ORDERED: DOPamine 800 MG/500 ML INJ 500 ML ONE (10:20)
--- NOTE | 2017-10-21 11:29 | MB ---
cc: Butch Lai MD DATE: 10/21/2017 HISTORY OF PRESENT ILLNESS: This is a very pleasant 87-year-old lady with history of hypertension, presents with chest pain beginning at 3 a.m. this morning, found to be in atrial fibrillation and cardiogenic shock. Pressures in the 60s and 70s, started on heparin and dopamine in the emergency room. The patient is very hypoxic as well, on 100% oxygen in the dental laboratory manager. Otherwise, review of systems is unobtainable as the patient has altered mental status. PAST MEDICAL HISTORY: As per history of present illness. There is also history of severe aortic valve stenosis, history of pneumonia, hypertension, CHF, cholecystectomy, bilateral lens replacement, left hip and right hip replacement. SOCIAL HISTORY: Denies tobacco or alcohol use. ALLERGIES: SIMVASTATIN, CIPROFLOXACIN. MEDICATIONS PRIOR TO ADMISSION: 1. Multivitamins. 2. Calcium. 3. Ditropan. 4. Atenolol 25 b.i.d. 5. Omeprazole. 6. Lovastatin 20. 7. Amlodipine 5 mg b.i.d. PHYSICAL EXAMINATION: VITAL SIGNS: In the ER initially, pulse 117, blood pressure 175/55, temperature 97.6. GENERAL: She is obtunded. Moderate to severe distress. NECK: Supple. No JVD or bruit. CARDIOVASCULAR: S1, S2. No murmurs, rubs or gallops. RESPIRATORY: Lungs clear to auscultation bilaterally. ABDOMEN: Soft. Nontender, nondistended with positive bowel sounds. EXTREMITIES: No lower extremity edema. LABORATORY DATA: White count 10.1, hemoglobin 14.7, hematocrit 45.0, platelet count 266. Sodium 141, potassium 4.1, chloride 109, bicarbonate 21.1, BUN 18, creatinine 1.57. CKs at 731, MB% is 11.0, troponin 15.60, AST 167, ALT 67. INR is 1.0. The chest x-ray shows new moderate lower lobe, prominent diffuse interstitial prominence, likely reflecting interstitial edema. CT angio of the chest, no pulmonary embolus is identified. Small bilateral effusions. Diffuse bilateral infiltrates, likely represent interstitial edema, cardiomegaly with extensive atherosclerotic calcification of the coronary arteries. Calcification of the aortic annulus. EKG is not available, but I have seen it. It did show about 3-[address]-segment depression in the anterolateral leads consistent with severe anterior ischemia. DIAGNOSES: 1. Gvd-HC-[id number] myocardial infarction. 2. Cardiogenic shock. 3. Atrial fibrillation. 4. Hypertension. 5. Rapid ventricular response. 6. Chronic renal insufficiency. 7. Aortic stenosis by history. DISCUSSION: At this point in time, the patient has very high risk for poor outcome. She has received aspirin and heparin and dopamine in the ER, she is still in cardiogenic shock in the dental laboratory manager. PLAN: Left heart catheterization with further recommendations based on the anatomy of her coronary arteries, LV function and aortic valve gradient. The patient is DNR. I have ascertained with her daughter, who is her surrogate decision maker that the patient does not want to be intubated or shocked. Butch Lai MD AWC/TL , 11:03 AM , 11:27 AM
[2017-10-21] MEDS ORDERED: ATROPINE SULFATE 1 MG/10 ML SYRINGE ONE (11:43)
[2017-10-21] MEDS ORDERED: EPINEPHrine HCL (1:10,000) 1 MG/10 ML SYRINGE ONE (11:43)
--- NOTE | 2017-10-21 11:51 | MA ---
cc: Butch Lai MD DATE: 10/21/2017 PROCEDURE PERFORMED: Left heart catheterization, left ventriculography, coronary angiography, aortic root angiography, right femoral artery angiography and intraaortic balloon pump placement. INDICATIONS FOR PROCEDURE: Non-STEMI, cardiogenic shock, severe aortic valve stenosis. PROCEDURE The patient was brought to the cardiac catheterization lab, prepped and draped in the usual sterile fashion. 10 mL of 1% lidocaine was used to locally anesthetize the right common femoral artery. A 4-Ecuadorean sheath was placed in right common femoral artery. A 4-Ecuadorean JR4, JL4 and pigtail catheters were used to perform left and right coronary angiography, left ventriculography. FINDINGS: The left main was a relatively small vessel 2-5 mm in diameter. No obvious focal stenoses. There was a long 95% proximal LAD lesion followed by a 75% stenosis in the mid LAD. The LAD was transapical. I could not image the left circumflex vessel, suggesting a flush occlusion at the ostium. The first diagonal artery was a medium size vessel with proximal 20-30% stenosis in a proximal bifurcation. The medial branch is a small 1.0 mm vessel with a 50% proximal mid stenosis. The more lateral branch has ostial proximal 50-60% stenosis, 2 0 vessel. Right coronary artery is dominant, has an ostial 75% stenosis. No collaterals to the right. Mild to moderate diffuse disease in the mid to distal segment up to 50% angiographically. I had to cross the aortic valve with a 0.035 straight Glidewire, the valve appeared to be very calcified fluoroscopically. LV pressures were on 10 mics of dopamine were 90/35/40. Pullback aortic pressure was 58/45/52. Aortic root angiography reveals mild AI, normal appearing size aortic root and right femoral artery angiography reveals a 50% stenosis at the sheath insertion site. The patient then developed PEA. We did emergent intraaortic balloon pump placement. On the aortic balloon pump waveform, the patient was flat line. As the patient's daughter, her surrogate decision maker requested no defibrillation or intubation, this was not performed. We did perform CPR without successful resuscitation. The patient also received atropine and 1 amp of epinephrine. CONCLUSION: 1. [id number] myocardial infarction, cardiogenic shock, culprit 95% proximal LAD and severe aortic valve stenosis. 2. Moderate to severe left main and 3-vessel coronary artery disease, right dominant system. 3. Cardiogenic shock, EF 20-25%. 4. Severe aortic valve stenosis with a pullback gradient of 36 mmHg. 5. Pulseless electrical activity with unsuccessful resuscitation, as detailed above. Butch Lai MD AWC/TL , 11:10 AM , 11:50 AM
--- NOTE | 2017-10-21 12:56 | HHI.CCPN ---
Subjective Remarks/Hospital Course I was called by ED attending Dr. Gamez regarding Ms. Coleman. She explained to me that patient presented this morning with chest pain. On her arrival she was in A. fib with RVR, and hypotensive. She told me that the patient was given fluid bolus and low-dose metoprolol and then the patient was given amiodarone. She was found to have an elevated troponin therefore she discussed her case with Dr. Lai who is planning to take the patient to woven label designer. I accepted to admit Ms. Coleman to ICU. I went down to ED to see and examine the patient, however patient has been already taken to woven label designer by Dr. Lai. In order to expedite patient's admission, I placed basic admission orders for Ms. Coleman. Later, I went to [facility] ICU to examine her and the nurse notified me that the patient in the woven label designer. Per ED attending note and Dr. Lai' s note, patient was DNR. Objective Vital Signs Date Time Temp Pulse Resp B/P (MAP) Pulse Ox O2 Delivery O2 Flow Rate FiO2 10/21/17 09:58 10/21/17 09:45 110 27 90 Non-Rebreather 15.00 10/21/17 07:48 97.6 Intake and Output 10/21/17 10/21/17 10/21/17 07:59 15:59 23:59 Intake Total 1100 ml Balance 1100 ml Result Diagram: 10/21/17 0800 10/21/17 0800 Randall Smiley MD Oct 21, 2017 12:56
--- NOTE | 2017-10-21 15:26 | CATHPROC ---
[place] HIS Report Study Information Study Number Admission Scheduled Start Study Start [id number] Oct 21 2017 7:47AM 10/21/2017 Oct 21 2017 10:03AM [place] [facility] Cardiac Catheterization Admit Source Facility Department Emergency department [facility] - Data Processing Systems Consultant Physician and Clinical Staff Initial Butch Whitney RN, Jenn Perdomo,RN Recorder Zenobia Ch ,RT(R) Scrub Connor Miles RCIS(BS) Procedures Performed Procedure Location (Site) Vessel Name Angiogram LV Asc. Aorta (A) Coronary Angiograms LCA Left Coronary Coronary Angiograms RCA Right Coronary IABP Fem Art (right) Femoral Art L Heart Cath LV Gram-hand inj. LV LV Ventricle Wire insertion Fem Art (right) Femoral Art Equipment Time Lieutenant Colonel Description Size Mfg Part Number Used/Scraped TRANSDUCER, TRUWAVE [id number] 10:09 DHILLON MARTELL * Used W/STOCKCOCK *[id number] WIRE, ZIP STRAIGHT GLIDE [id number] 10:42 [employer] 150CM Used 150CM *[id number] [id number] *[id number] [id number] *[id number] *[id number] BALLOON, FR7.5 40CC [id number] 11:01 MAQUET FR 7.5 40CC Used SENSATION PLUS 01U *[id number] 10:09 TIDAL PETROLEUM BLANKET,WARM AIR CCL * Used *[id number] 10:09 TIDAL PETROLEUM PACK, CCL CUSTOM * Used *[id number] 10:09 [employer] PACER PEN, SKIN DUAL W/ RULER * Used *[id number] 10:36 [employer] MEDICAL SHEATH, FR6.5 PRELUDE 11CM FR 6.5 038ACT Used *[id number] 10:09 [employer] MEDICAL WIRE, 3MMJ .035 180CM 180CM Used *[id number] 10:09 NAMIC MANIFOLD, 4 PORT * Used *[id number] 10:09 [employer] OMNIPAQUE, 350 MG, 150ML 150ML [id number] Used [id number] 10:09 TERUMO MEDICAL SHEATH, FR4 TERUMO (10CM) FR 4 Used *[id number] Equipment Model, Serial, Lot Number and Expiration Data Description Model Number Serial Number Lot Number Expiration Date WIRE, ZIP STRAIGHT GLIDE 150SANG [id number] 08-30-2020 History: Allergies Allergy Reaction ciprofloxacin simvastatin unknown History: Risk Factors Hypertension Dyslipidemia Previous MT Previous Heart Failure Yes Yes No No Prior Valve Prior PCI Prior CABG Surgery No No No Cerebrovascular Peripheral Artery Chronic Lung On Dialysis Diabetes Disease Disease Disease No No No No No History: Stress Tests Stress or Imaging Studies Performed No Labs Hgb (g/dl) Hct (%) RBC (MIL/MM3) WBC (l/cumm) Platelets (thousands) 11.60-17.00 35.00-51.00 4.00-5.90 4.00-11.00 150.00-450.00 14.7 45 5.2 12.1 266 Glucose (mg/dl) BUN (mg/dl) Creatinine (mg/dl) BUN:Creatinine (1:x) 74.00-106.00 7.00-18.00 0.50-1.30 10.00-20.00 211 18 1.5 12 Na (meq/l) K (meq/l) 136.00-145.00 3.50-5.10 141 4.1 INR (PTT:PT) 0.90-1.10 1 Troponin I (ng/ml) 0.02-0.05 15.6 Medication Medication Total Dose (Bolus/Oral) Medication Total Dosage/Unit 1% XYLOCAINE 20 mL ATROPINE 1 mg EPINEPHRINE 1/82809 1 mg HEPARIN 3000 units Medications (Bolus/Oral) Medication Time Given Dosage/Unit Administered By Reason 1% XYLOCAINE 10/21/2017 10:33:12 AM 20 mL Butch Lai 20 mL 1% XYLOCAINE given in lab by Butch Lai in Right Groin via Subcutaneous. Ordered by Butch Ortega. HEPARIN 10/21/2017 10:45:14 AM 3000 units Guero Connolly RN 3000 units HEPARIN given in lab by Guero Connolly RN via Peripheral IV. Ordered by Butch Lai. ATROPINE 10/21/2017 10:48:49 AM 1 mg Jenn Kellogg 1 mg ATROPINE given in lab by Jenn Kellogg, SHANTELLE via Peripheral IV. Ordered by Butch Lai. EPINEPHRINE 1/42186 10/21/2017 10:50:58 AM 1 mg Jenn Kellogg 1 mg EPINEPHRINE 1/20153 given in lab by Jenn Kellogg, SHANTELLE in Left Antecubital. Ordered by Butch Lai. Medication (Drip) Medication Time Given Dosage/Unit Concentration/Unit Diluent (ml) Solution DOPAMINE HCL 10/21/2017 10:22:50 AM 3 mcg/kg/min 800 mg 500 D5W 3 mcg/kg/min DOPAMINE HCL given in lab by Guero Connolly RN in Left Antecubital via Peripheral IV. Pump /Drip Flow = 7.88 ml/hr using D5W with a concentration of 800 mg in 500 ml. Ordered by Butch Lai. DOPAMINE HCL 10/21/2017 10:35:14 AM 10 mcg/kg/min 800 mg 500 D5W 10 mcg/kg/min DOPAMINE HCL given in lab by Guero Connolly RN in Left Antecubital via Peripheral IV. Pum p/Drip Flow = 26.25 ml/hr using D5W with a concentration of 800 mg in 500 ml. Ordered by Butch Lai. DOPAMINE HCL 10/21/2017 11:00:00 AM 10 mcg/kg/min 800 mg 500 D5W 10 mcg/kg/min DOPAMINE HCL given in lab by Guero Connolly RN in Left Antecubital via Peripheral IV. Pum p/Drip Flow = 26.25 ml/hr using D5W with a concentration of 800 mg in 500 ml. Ordered by Butch Lai. Discontinued at 10/21/2017 11:00. IV Solutions 10/21/2017 10:03:14 AM 50 mL (IV) NaCl .9 Patient arrived on IV Solutions via Peripheral IV. Pump/Drip Flow using NaCl .9. Initial Case Assessment Cardiovascular HR NIBP 117 90/72 Edema Present Skin color Skin None Normal Warm Dry Circulatory - Right Pulses Dorsalis Pedis Femoral 2 2 Scale (0,1,2,3,4,d) Circulatory - Left Pulses Dorsalis Pedis Femoral 2 2 Scale (0,1,2,3,4,d) Neurological State Oriented to time-place- Alert Moves all extremities person Respiration - General Respiration Rate SpO2 (%) (B/min) 30 91 Chronological Log Time Study Chronological Log 10:02:44 Patient arrived via Bed. 10:02:45 Patient Name, D.O.B, / Armband Verified By R.N. 10:02:46 Consent signed by the physician and the patient and verified by the Data Processing Systems Consultant staff. 10:02:46 Pre-op and post- op instructions given; patient acknowledges understanding of instruction s. 10:03:06 Verbal Stimulation=2 Physical Stimulation=1 Airway=1 Respiration=2 TOTAL=6. (0=absent, 1= limited, 2=present) 10:03:06 Presedation assessment performed by Data Processing Systems Consultant RN. 10:03:08 Immediate Presedation assesment performed by physician. 10:03:09 Patient has been NPO for More than 6Hrs. 10:03:09 Skin Breakdown- none per patient 10:03:11 Patient Warmer Placed on the Table. 10:03:12 Marilyn Prominences Protected 10::13 A # 20 IV was noted in the Antecubital (right). Grade = 0 10:03:13 A # 18 IV was noted in the Antecubital (left). Grade = 0 10:03:14 Patient arrived on IV Solutions via Peripheral IV. Pump/Drip Flow using NaCl .9. 10:03:14 History and physical on the chart or being dictated. Vitals capture started with the following parameters, Patient=Adult, Interval=5 min, Initial Pr jeavme=214 mmHg, 10:04:24 Deflation Rate=5 mmHg, Cuff placed on Left Arm 10:05:01 NIBP=99/44 mmhg, SpO2=92.0 % 10:08:15 TG=640 bpm, NIBP=90/72 mmhg, SpO2=90.0 %, Resp=21 B/min Assessment: Initial Case, UI=709 BPM, NIBP=90/72 mmhg, Edema=None, Color=Normal, Skin = Warm, D ry Right Pulses: Luiz Ped=2, Femoral=2 10:08:44 Left Pulses: Luiz Ped=2, Femoral=2 Neurological: State=Alert, Ox3, HAWKINS Respiration: Resp=30 B/min, SpO2=91 % 10:09:13 KE=301 bpm, NIBP=95/74 mmhg, SpO2=90.0 %, Resp=25 B/min 10:11:11 Bilateral groins prepped with 2% chlorhexidine, and draped after a 3 minute waiting time. 10:11:14 ES=789 bpm, NIBP=95/63 mmhg, SpO2=93.0 %, Resp=34 B/min 10:12:00 MD paged 10:12:56 BI=696 bpm, CSCK=346/49 mmhg, SpO2=93.0 %, Resp=33 B/min 10:13:41 MD responded 10:14:55 NO=233 bpm, NIBP=90/63 mmhg, SpO2=90.0 %, Resp=32 B/min 10:14:55 Pressure channel 1 zeroed. 10:16:46 Reference ECG taken 10:16:52 BG=894 bpm, NIBP=93/66 mmhg, SpO2=89.0 %, Resp=32 B/min 10:18:57 KM=588 bpm, NIBP=81/45 mmhg, SpO2=90.0 %, Resp=35 B/min 10:20:47 WX=699 bpm, NIBP=94/78 mmhg, SpO2=88.0 %, Resp=34 B/min 3 mcg/kg/min DOPAMINE HCL given in lab by Guero Connolly RN in Left Antecubital via Peripheral IV . Pump/Drip Flow = 10:22:50 7.88 ml/hr using D5W with a concentration of 800 mg in 500 ml. Ordered by Butch Lai. 10:23:31 AG=363 bpm, NIBP=91/64 mmhg, SpO2=88.0 %, Resp=34 B/min 10:24:53 AL=987 bpm, NIBP=89/61 mmhg, SpO2=88.0 %, Resp=33 B/min 10:26:48 JL=042 bpm, NIBP=98/84 mmhg, SpO2=90.0 %, Resp=32 B/min 10:29:33 OI=083 bpm, UKAF=590/88 mmhg, SpO2=89.0 %, Resp=40 B/min 10:29:47 NIBP STAT measurement started. 10:30:35 MD arrived. 10:30:40 Dr. Lai is aware of Full DNR code status. Time Out. Correct patient, correct procedure, correct physician, labs, allergies, and equipment verified with electroplating laborer 10:31:20 team present. Fire risk assesment completed (see hard stop sheet for coding). Time Out Conc urred by and individual staff in procedure. 10:32:17 JC=929 bpm, WBIJ=943/112 mmhg, SpO2=88.0 %, Resp=40 B/min 20 mL 1% XYLOCAINE given in lab by Butch Lai in Right Groin via Subcutaneous. Ordered by Ming, 10:33:12 Butch. 10:33:22 Case Start 10:33:27 CI=595 bpm, NIBP=84/61 mmhg, SpO2=86.0 % 10:34:53 EH=190 bpm, NIBP=88/66 mmhg, SpO2=87.0 %, Resp=36 B/min 10 mcg/kg/min DOPAMINE HCL given in lab by Guero Connolly RN in Left Antecubital via Peripheral I V. Pump/Drip Flow = 10:35:14 26.25 ml/hr using D5W with a concentration of 800 mg in 500 ml. Ordered by Butch Lai. 10:36:46 Access site was Right Femoral Artery. 10:36:51 A wire was inserted via Fem Art (right). 10:36:53 A SHEATH, FR4 TERUMO (10CM) FR 4 was advanced into the Fem Art (right) using the Percutaneo us technique. 10:36:56 LJ=885 bpm, NIBP=94/54 mmhg, SpO2=87.0 %, Resp=36 B/min 10:37:09 Activated Clotting Time Drawn A JL 4.0 INFINITI CATHETER FR 4 was advanced over a wire. OMNIPAQUE, 350 MG, 150ML 150ML was us ed for 10:38:02 injections. Recorded Pressure: Ao, MP=505, Condition=Condition 1 10:38:41 (Aorta) Ao 79/59/69 10:38:57 KY=821 bpm, NIBP=79/65 mmhg, SpO2=88.0 %, Resp=28 B/min 10:39:00 The LCA was injected and visualized at various angles. contrast used. After removing the current catheter a JR 4.0 INFINITI CATHETER FR 4 was advanced over a WIRE, 3 MMJ .035 180CM 10:39:34 180CM. 10:40:51 SZ=157 bpm, NIBP=82/63 mmhg, SpO2=86.0 %, Resp=25 B/min 10:41:11 The RCA was injected and visualized at various angles. OMNIPAQUE, 350 MG, 150ML 150ML used . 10:42:23 A WIRE, ZIP STRAIGHT GLIDE 150CM 150CM was inserted via Fem Art (right). 10:42:38 ACT (Normal Range 90-180) = 224 10:42:56 RQ=428 bpm, NIBP=72/54 mmhg, SpO2=86.0 %, Resp=28 B/min Recorded Pressure: LV, QP=298, Condition=Condition 1 10:44:37 (Left Ventricle) LV 91/30/40 10:44:44 The LV was manually injected with 10 cc's and visualized. OMNIPAQUE, 350 MG, 150ML 150ML us ed. 10:44:55 GW=979 bpm, NIBP=75/45 mmhg, SpO2=85.0 %, Resp=41 B/min Recorded Pressure: LV, Ao, OK=967, Condition=Condition 1 10:45:05 (Left Ventricle) LV 94/35/41, (Aorta) Ao 58/45/52 10:45:14 3000 units HEPARIN given in lab by Guero Connolly RN via Peripheral IV. Ordered by Butch Lai. 10:47:41 HR=50 bpm, YVMQ=667/106 mmhg, SpO2=84.0 %, Resp=24 B/min 10:47:50 The Asc. Aorta (A) was injected at 20 cc/sec for a total of 40. OMNIPAQUE, 350 MG, 150ML 15 0ML used. 10:48:00 An injection in the Fem Art (right) was made through the SHEATH, FR4 TERUMO (10CM) FR 4. 10:48:49 1 mg ATROPINE given in lab by Jenn Kellogg, SHANTELLE via Peripheral IV. Ordered by Prasanth Lai 10:49:53 Sheath exchanged for intra-aortic balloon insertion. Vitals capture started with the following parameters, Patient=Adult, Interval=5 min, Initial Pr xzotwx=159 mmHg, 10:50:43 Deflation Rate=5 mmHg, Cuff placed on Left Arm 10:50:58 1 mg EPINEPHRINE 1/66980 given in lab by Jenn Kellogg, SHANTELLE in Left Antecubital. Ordered by Butch Lai. 10:51:28 HR=38 bpm, NIBP=77/57 mmhg, SpO2=85.0 %, Resp=37 B/min An BALLOON, FR7.5 40CC SENSATION PLUS FR 7.5 40CC was advanced to the descending aorta. Proper placement 10:53:00 was confired under fluoroscopy and the balloon was sutured in place. Ratio = ~RATIO~. Augmented BP 05/03 10:57:32 CPR started 10:58:30 Case End (Physician broke scrub) 10:58:32 In the Fem Art (right) the IABP sheath was sutured in place by Connor Miles 10 mcg/kg/min DOPAMINE HCL given in lab by Guero Connolly RN in Left Antecubital via Peripheral I V. Pump/Drip Flow = 11:00:00 26.25 ml/hr using D5W with a concentration of 800 mg in 500 ml. Ordered by Butch Lai . Discontinued at 10/21/2017 11:00. 11:02:[address] Lai 11:04:36 Cine recording checked. 11:04:38 Bedside Report will be given. 11:04:50 A Left Heart Cath was performed. 11:05:20 Case complication noted. 11:15:[facility] - Contrast Media Used In Study Contrast Total Opened (mL) Total Used (mL) Total Wasted (mL) Omnipaque 80 80 0 End Study - Maximum Contrast Load Max Contrast Load (mL) 233.3 End Study - Radiation Exposure Fluoro Time (minutes) 5.4 End Study - Patient Disposition Complications Transferred To Interventional Outcome Not selected Critical Care Bed No attempt made
[2017-10-21] MEDS ORDERED: HEPARIN SODIUM - IV 10,000 UNITS/10 ML VIAL IV PUSH PRN ×2 (15:45)
--- NOTE | 2017-10-21 18:25 | EKG ---
Date Performed: 10/21/2017 Time Performed: 07:51:29 PTAGE: 87 years EKG: ATRIAL FIBRILLATION WITH RAPID VENTRICULAR RESPONSE BORDERLINE LEFT AXIS DEVIATION INTRAVEN TRICULAR CONDUCTION DELAY ABNORMAL ECG ST depression potentially consistent with acute ischemia patte rn versus repolarization abnormalities. Clinical correlation is recommended PREVIOUS TRACING :07/20/2013 @09.20 When compared to prior EKG,patient is now in atrial fi brillation with rapid ventricular rate DOCTOR: Jessica Lynn Interpretating Date/Time 10/21/2017 18:24:21
[2017-10-21] MEDS ORDERED: DOCUSATE SODIUM 50 MG/SENNA 8.6 MG TAB PO SCH (21:00)
[2017-10-21] MEDS ORDERED: FAMOTIDINE 20 MG/2 ML VIAL IV PUSH SCH (21:00)
[2017-10-22] MEDS ORDERED: CHLORHEXIDINE GLUCONATE 2 % 1 PACK (2 CLOTHS) TOP SCH (04:00)
[2017-10-22] MEDS ORDERED: FAMOTIDINE 20 MG/2 ML VIAL IV PUSH SCH (09:00)
== END 2017-10-21 10:58 | disposition expired | DRG 271 ==
LOC: NEPC 07:47 → HCVI 09:53
PROVIDERS: ADMIT Internal Medicine Critical Care Medicine; ATTEND Internal Medicine Critical Care Medicine
PROC: 4A023N7 Measurement of Cardiac Sampling and Pressure, Left Heart, Percutaneous Approach (ICD-10-PCS; principal; 2017-10-21)
PROC: 5A02210 Assistance with Cardiac Output using Balloon Pump, Continuous (ICD-10-PCS; 2017-10-21)
PROC: B2151ZZ Fluoroscopy of Left Heart using Low Osmolar Contrast (ICD-10-PCS; 2017-10-21)
PROC: B2111ZZ Fluoroscopy of Multiple Coronary Arteries using Low Osmolar Contrast (ICD-10-PCS; 2017-10-21)
PROC: B41F1ZZ Fluoroscopy of Right Lower Extremity Arteries using Low Osmolar Contrast (ICD-10-PCS; 2017-10-21)
PROC: B3101ZZ Fluoroscopy of Thoracic Aorta using Low Osmolar Contrast (ICD-10-PCS; 2017-10-21)
DX: I21.4 Non-ST elevation (NSTEMI) myocardial infarction (principal); I13.0 Hypertensive heart and chronic kidney disease with heart failure and stage 1 through stage 4 chronic kidney disease, or unspecified chronic kidney disease; R57.0 Cardiogenic shock; I50.9 Heart failure, unspecified; I48.91 Unspecified atrial fibrillation; I35.0 Nonrheumatic aortic (valve) stenosis; R41.82 Altered mental status, unspecified; Z87.01 Personal history of pneumonia (recurrent); I25.10 Atherosclerotic heart disease of native coronary artery without angina pectoris; N18.9 Chronic kidney disease, unspecified; R09.02 Hypoxemia; Z66 Do not resuscitate; Z96.641 Presence of right artificial hip joint; Z90.49 Acquired absence of other specified parts of digestive tract; Z88.1 Allergy status to other antibiotic agents; Z88.8 Allergy status to other drugs, medicaments and biological substances
CPT/HCPCS: 33967; 71045; 71275; 80053; 82550; 82552; 84484; 85002; 85025; 85610; 85730; 92950; 93005; 93458; 93567; C1769; C1893; J0171; J0282; J0461; J1265; J1644; J7030; Q9967